=== PATIENT | female | born 1955 | race Two or more races ===

== ENCOUNTER 2024-12-27 07:00 | Outpatient (CLI) | payer OTHER ==
[~2024-12-27] VITALS: Ht 157.5 cm; Wt 58.1 kg
[2024-12-27] MEDS ORDERED: COZAAR100 MG PO (13:20)
[2024-12-27] MEDS ORDERED: PAXIL20 MG (13:20)
[2024-12-27] MEDS ORDERED: PROLIA60 MG/1 ML SUBCUTANEO (13:22)
[2024-12-27] MEDS ORDERED: PROMETRIUM200 MG (13:22)
[2024-12-27 13:54] VITALS: BP 174/83
== END 2024-12-27 07:15 | disposition home or self-care (01) ==
LOC: EKG 07:00 → ADM 11:30 → CIR.AMB 01-04 07:00 → EDSTATUS 01-04 11:30 → CIR.AMB 01-04 11:30
PROVIDERS: ATTEND Surgery
DX: K64.2 Third degree hemorrhoids (principal); K62.5 Hemorrhage of anus and rectum; K62.89 Other specified diseases of anus and rectum